=== PATIENT | female | born 1940 | race Caucasian/White ===

== ENCOUNTER 2024-05-24 17:41 | Emergency (ER) | payer MEDICARE | END 2024-05-24 19:34 | disposition home or self-care (01) | LOC: LB.ED 17:41 | DX: S83.92XA Sprain of unspecified site of left knee, initial encounter (principal); I12.9 Hypertensive chronic kidney disease with stage 1 through stage 4 chronic kidney disease, or unspecified chronic kidney disease; N18.30 Chronic kidney disease, stage 3 unspecified; E78.00 Pure hypercholesterolemia, unspecified; Z96.649 Presence of unspecified artificial hip joint; Z96.659 Presence of unspecified artificial knee joint; Z79.899 Other long term (current) drug therapy; W06.XXXA Fall from bed, initial encounter | CPT/HCPCS: 73560-LT; 99283 ==